=== PATIENT | male | born 1935 | race Caucasian/White ===

== ENCOUNTER → 2016-11-22 | Outpatient (CLI) | payer MEDICARE, BC ==
[~2016-11-22] MED LIST: AMLODIPINE BESY10 MG PO; ASPIRIN (CHILDR81 MG PO; COLACE100 MG PO; GLUCOTROL10 MG PO; KLONOPIN1 MG PO; LANTUS SOL100 UNIT/1 SUB-Q; LIPITOR40 MG PO; PLAVIX75 MG PO; PRINIVIL (ZESTR20 MG PO; PROTONIX40 MG PO; THERA-VITE W/ B1 TAB PO; TYLENOL EXTRA500 MG PO
== END | disposition disaster alternative care site (69) ==
LOC: GRAD 10:49
DX: M48.06 Spinal stenosis, lumbar region (principal); M47.896 Other spondylosis, lumbar region

== ENCOUNTER → 2016-11-29 | Day surgery (SDC) | payer MEDICARE, BC ==
[~2016-11-29] VITALS: Ht 170.2 cm; Wt 74.0 kg
== END | disposition disaster alternative care site (69) ==
LOC: GPOC 11-26 13:00 → GSDC 12:54
PROC: 3E0R3BZ Introduction of Anesthetic Agent into Spinal Canal, Percutaneous Approach (ICD-10-PCS; principal; 2016-11-29)
DX: M51.16 Intervertebral disc disorders with radiculopathy, lumbar region (principal); M48.06 Spinal stenosis, lumbar region; M47.26 Other spondylosis with radiculopathy, lumbar region; Z79.4 Long term (current) use of insulin; Z79.899 Other long term (current) drug therapy
CPT/HCPCS: J1030; J1040